=== PATIENT | male | born 1985 | race Two or more races ===

== ENCOUNTER 2025-05-10 05:02 | Emergency (ER) | payer MEDICAID, OTHER ==
[~2025-05-10] VITALS: Ht 180.3 cm; Wt 116.0 kg
[2025-05-10 05:08] VITALS: BP 170/105; PULSE 93; RESP 18; TEMP 98.2; O2SAT 94
[2025-05-10] MEDS: LORazepam 0.5 MG TAB PO ONE (06:59)
--- NOTE | 2025-05-10 07:04 | ED.PDOC ---
Psychiatric HPI Comments 39 y/o M, presents to the ED for CC of anxiety. Patient states, to have taken a sex enhancement pill called "blue rhino" followed by smoking methamphetamine and has since, been experiencing symptoms of anxiety. Patient denies homicidal ideation, suicidal ideation, auditory or visual hallucinations. Chief Complaint: Detox Clearance Time Seen by MD: 06:50 Reviewed Notes: Nurses Notes, Medications, Allergies Information Source: Patient Mode of Arrival: Ambulatory Severity: Able to Care for Self Severity of Pain: None Severity of Mental Status: None Severity of Symptoms: Moderate Timing: Hours Duration: Since onset Prehospital treatment: None Presents with: Anxiety Current substance abuse: Amphetamines History of: Anxiety, Substance Abuse Quality: None Associated signs and symptoms: Anxiety Past Medical History PAST MEDICAL HISTORY: Denies Surgical History: Denies all surgeries Family History Family History: Unknown Social History Smoker: Unknown Alcohol: Unknown Drugs: Methamphetamine Lives In: Home Constitutional: denies: chills, diaphoresis, fatigue, fever, malaise, sweats, weakness, others EENTM: denies: blurred vision, double vision, ear bleeding, ear discharge, ear drainage, ear pain, ear ringing, eye pain, eye redness, hearing loss, mouth pain, mouth swelling, nasal discharge, nose bleeding, nose congestion, nose pain, photophobia, tearing, throat pain, throat swelling, voice changes, others Respiratory: denies: cough, hemoptysis, orthopnea, SOB at rest, shortness of breath, SOB with excertion, stridor, wheezing, others Cardiovascular: denies: chest pain, dizzy spells, diaphoresis, Dyspnea on exertion, edema, irregular heart beat, left arm pain, lightheadedness, palpitations, PND, syncope, others Gastrointestinal: denies: abdomen distended, abdominal pain, blood streaked bowels, constipated, diarrhea, dysphagia, difficulty swallowing, hematemesis, melena, nausea, poor appetite, poor fluid intake, rectal bleeding, rectal pain, vomiting, others Genitourinary: denies: burning, dysuria, flank pain, frequency, hematuria, inco ntinence, penile discharge, penile sore, pain, testicle pain, testicle swelling, urgency, others Neurological: denies: dizziness, fainting, headache, left sided numbness, left sided weakness, numbness, paresthesia, pre-existing deficit, right sided numbness, right sided weakness, seizure, speech problems, tingling, tremors, weakness, others Musculoskeletal: denies: back pain, gout, joint pain, joint swelling, muscle pain, muscle stiffness, neck pain, others Integumetry: denies: bruises, change in color, change in hair/nails, dryness, laceration, lesions, lumps, rash, wounds, others Allergic/Immunocompromised: denies: Difficulty Healing, Frequent Infections, Hives, Itching, others Hematologic/Lymphatic: denies: anemia, blood clots, easy bleeding, easy bruising, swollen glands, others Endocrine: denies: excessive hunger, excessive sweating, excessive thirst, excessive urination, flushing, intolerance to cold, intolerance to heat, unexplained weight gain, unexplained weight loss, others Psychiatric: reports: anxiety; denies: bipolar disorder, depression, hopeless, panic disorder, schizophrenia, sleepless, suicidal, others All Other Systems: Reviewed and Negative Physical Exam General Appearance: No Apparent Distress, Normal, Other (anxiou appearing) HEENT: Normal ENT Inspection, Pharynx Normal Neck: Full Range of Motion, Non-Tender, Normal, Normal Inspection Respiratory: Chest Non-Tender, Lungs Clear, No Accessory Muscle Use, No Respiratory Distress, Normal Breath Sounds Cardiovascular: No Edema, No Murmur, No Gallop, Normal Peripheral Pulses, Regular Rate/Rhythm Breast Exam: Deferred Gastrointestinal: No Organomegaly, Non Tender, No Pulsatile Mass, Normal Bowel Sounds, Soft Genitalia: Deferred Pelvic: Deferred Rectal: Deferred Extremities: No calf tenderness, Normal capillary refill, Normal inspection, Normal range of motion, Non-tender, No pedal edema Musculoskeletal : Apperance: Normal Neurologic: Alert, financial planning assistant II-XII nml as Tested, No Motor Deficits, Normal Affect, Normal Mood, No Sensory Deficits Cerebellar Function: Normal Reflexes: Normal Skin: Dry, Normal Color, Warm Lymphatic: No Adenopathy Was a procedure done? Was a procedure done?: No Psych Differential Dx OD Differential Dx: Anxiety, Intentional, Substance Abuse X-Ray, Labs, Meds, VS Vital Signs Date Time Temp Pulse Resp B/P (MAP) Pulse Ox O2 Delivery O2 Flow Rate FiO2 05/10/25 05:08 98.2 93 18 170/105 94 98.2 Current Medications Medications (Trade) Dose Ordered Sig/Abigail Route Start Time Stop Time Status Last Admin Lorazepam (Ativan Tablet) 2 mg ONCE ONCE PO 05/10/25 06:45 05/10/25 06:46 DC 05/10/25 06:59 Time of 1ST Reevaluation: 07:20 Reevaluation 1ST: Unchanged Patient Education/Counseling: Diagnosis, Treatment Family Education/Counseling: No Family Present Departure 1 Departure Time of Disposition: 08:14 (Patient presents with polysubstance abuse. We will treat patient for his anxiety and discharge patient home) Impression: Primary Impression: Polysubstance abuse Disposition: 01 HOME / SELF CARE / HOMELESS Condition: Stable Additional Instructions: Do not use drugs. There are resources to help you quit. You can call: 1-590-549-[facility] (3042) If your symptoms worsen or you have any other concerns please return to the emergency room. Discharged With: Self Critical Care Note Critical Care Time?: No Stability Stability form required: No Heart Score Heart Score: Heart Score Response (Comments) Value History N/A 0 EKG N/A 0 Age N/A 0 Risk Factors N/A 0 Troponin N/A 0 Total 0 I personally scribed for JOCELYN LOPEZ MD ([email or web address]) on 05/10/25 at 07:04. Electronically submitted by Kate Funes [email or web address]). JOCELYN LOPEZ MD May 10, 2025 07:04
== END 2025-05-10 08:17 | disposition home or self-care (01) ==
LOC: ER 05:02
DX: F15.10 Other stimulant abuse, uncomplicated (principal); F17.200 Nicotine dependence, unspecified, uncomplicated; Z79.899 Other long term (current) drug therapy